=== PATIENT | female | born 1995 | race Caucasian/White ===

== ENCOUNTER → 2021-11-14 09:29 | Outpatient (CLI) | payer OTHER, SELFPAY ==
[2021-11-14 12:19] LABS: Hematocrit 33.4 % (36-46); Hemoglobin 11.1 g/dL (12.0-16.0)
[2021-11-14 12:27] LABS: GTT (PREG) 1 Hour PP 50gm Dose 92 mg/dL (76-139)
== END ==
PROVIDERS: Referring Provider Obstetrics & Gynecology; Visit Provider Obstetrics & Gynecology
DX: Z34.02 Encounter for supervision of normal first pregnancy, second trimester (principal); Z3A.25 25 weeks gestation of pregnancy
CPT/HCPCS: 36415; 82950; 85014; 85018

== ENCOUNTER 2021-11-15 08:17 | Outpatient (CLI) | payer OTHER, SELFPAY ==
--- NOTE | 2021-11-15 09:00 | P.TNLD_ITS ---
Visit Information Visit Information Date of evaluation: 11/15/21 Primary OB Provider: Kim Vann Reason for Evaluation: Yes non-stress test Comments/Additional reasons for admission: @26+0 sent for NST due to deep variable heard in clinic. No symptoms or concerns. Vital Signs Vital Signs: 114/67, HR 76 [facility] Medical History Acne (~2019) Anxiety (~2019) Chicken pox (~1995) Constipation Malignant melanoma (~07/2016) Surgical History Anesthesia H/O breast augmentation (~12/2014) S/P lumpectomy, left breast (~10/2013) Skin cancer (~2015) [place] teeth extracted (~2017) Family History Mother Hypertension Myocardial infarction Heart disease Hyperlipidemia Father Hypertension Grandmother Breast cancer Diabetes mellitus Grandfather Colon cancer Heart disease Hyperlipidemia Hypertension Grandmother Parkinson's disease Grandfather Colon cancer Hypertension Brother ADHD Dyslexia Sister Herpes Social History marital status: number of children: 0 household members: spouse lives independently: Yes caregiver/support person: No pets and animals: Yes (2 dogs, 1 cat: safe/aware. 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 ) substance use type: does not use during the past year weight has: remained stable well-balanced diet: daily or most days caffeine: Yes (Limits to 1 cup coffee or soda daily. ) Type(s) of exercise: walking, bicycling (Peloton) and normal ROM and activity frequency: 3-4 times per week duration: 30-45 minutes/day Evaluation Evaluation Baseline heart rate: 145 Variability: Minimal (3-5) monitor accelerations: Absent (appropriate for gestational age) Monitor Decelerations: Absent Diagnosis, Plan/Disposition Plan/Disposition Plan: No further variables, discharged home with routine precautions. OB Disposition: home
== END 2021-11-15 08:57 | disposition home or self-care (01) ==
LOC: OB 12-12 12:35
PROVIDERS: Referring Provider Obstetrics & Gynecology; Visit Provider Obstetrics & Gynecology
DX: O36.8320 Maternal care for abnormalities of the fetal heart rate or rhythm, second trimester, not applicable or unspecified (principal); Z3A.26 26 weeks gestation of pregnancy
CPT/HCPCS: 59025; G0378; G0379

== ENCOUNTER 2021-12-13 08:31 | Outpatient (CLI) | payer OTHER, SELFPAY ==
--- NOTE | 2021-12-13 11:09 | PM.OBTRLD ---
Visit Information Visit Information Date of evaluation: 12/13/21 Primary OB Provider: Kim Vann Reason for Evaluation: Yes non-stress test Comments/Additional reasons for admission: Patient is a 26yo P0 @30 weeks gestation sent for NST due to grade 2 placenta. Uterine synechea but no other complications, medical history, or covid history. Vital Signs Vital Signs: 119/76, pulse 95 PFSH Medical History Acne (~2019) Anxiety (~2019) Chicken pox (~1995) Constipation Malignant melanoma (~07/2016) Surgical History Anesthesia H/O breast augmentation (~12/2014) S/P lumpectomy, left breast (~10/2013) Skin cancer (~2015) [place] teeth extracted (~2017) Family History Mother Hypertension Myocardial infarction Heart disease Hyperlipidemia Father Hypertension Grandmother Breast cancer Diabetes mellitus Grandfather Colon cancer Heart disease Hyperlipidemia Hypertension Grandmother Parkinson's disease Grandfather Colon cancer Hypertension Brother ADHD Dyslexia Sister Herpes Social History marital status: number of children: 0 household members: spouse lives independently: Yes caregiver/support person: No pets and animals: Yes (2 dogs, 1 cat: safe/aware. 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 ) substance use type: does not use during the past year weight has: remained stable well-balanced diet: daily or most days caffeine: Yes (Limits to 1 cup coffee or soda daily. ) Type(s) of exercise: walking, bicycling (Peloton) and normal ROM and activity frequency: 3-4 times per week duration: 30-45 minutes/day Evaluation Evaluation Baseline heart rate: 135 Variability: Average (6-10) monitor accelerations: Present (15x15) Monitor Decelerations: Absent Category of Tracing: Reactive Status: Category l Diagnosis, Plan/Disposition Plan/Disposition Plan: Home with routine precautions. OB Disposition: home
== END 2021-12-13 09:00 | disposition home or self-care (01) ==
LOC: LABOR 08:42 → OB 12-16 10:46
PROVIDERS: Referring Provider Obstetrics & Gynecology; Visit Provider Obstetrics & Gynecology
DX: O44.23 Partial placenta previa NOS or without hemorrhage, third trimester (principal); Z3A.30 30 weeks gestation of pregnancy
CPT/HCPCS: 59025; G0378; G0379

== ENCOUNTER → 2021-12-21 10:45 | Outpatient (CLI) | payer OTHER, SELFPAY ==
[2021-12-21 11:26] LABS: Add Manual Diff / Slide Review NO; Basophils Absolute Auto 0 /uL (0-100); Basophils Percent Auto 0.1 % (0-2); Eosinophils Absolute Auto 100 /uL (0-450); Eosinophils Percent Auto 0.8 % (2-4); Hematocrit 30.7 % (36-46); Hemoglobin 10.3 g/dL (12.0-16.0); Lymphocytes Absolute Auto 1500 /uL (1100-4500); Lymphocytes Percent Auto 12.4 % (25-40); Mean Corpuscular HGB Conc 33.7 % (30-36); Mean Corpuscular Hemoglobin 26.9 PG (26-34); Mean Corpuscular Volume 79.9 fL (80-100); Monocytes Absolute Auto 1100 /uL (0-900); Monocytes Percent Auto 8.8 % (3-14); Neutrophils Absolute Auto 9500 /uL (1500-7000); Neutrophils Percent Auto 77.9 % (50-75); Platelet Count 381 X10^3/uL (150-400); Red Blood Cell Count 3.84 X10^6/uL (4.0-5.2); White Blood Cell Count 12.2 X10^3/uL (4.5-11.0)
[2021-12-21 11:50] LABS: Alanine Aminotransferase 15 IU/L (<35); Albumin 3.8 g/dL (3.5-5.0); Albumin Globulin Ratio 1.1 (1.0-2.8); Alkaline Phosphatase 136 U/L (38-126); Aspartate Aminotransferase 23 IU/L (14-36); Bilirubin Total 0.2 mg/dL (0.2-1.3); Blood Urea Nitrogen 6 mg/dL (7-17); Calcium 9.2 mg/dL (8.4-10.2); Carbon Dioxide 19 mmol/L (22-32); Chloride 108 mmol/L (98-107); Estimated Glomerular Filt Rate > 60.0 mL/min (>60); Globulin 3.5 g/dL (1.7-4.1); Glucose 87 mg/dL (70-100); HEMOLYSIS < 15 (0-50); Lactate Dehydrogenase 356 U/L (313-618); Potassium 3.6 mmol/L (3.4-5.1); Sodium 136 mmol/L (137-145); Total Protein 7.3 g/dL (6.3-8.2); Uric Acid 3.7 mg/dL (2.5-6.2)
[2021-12-21 12:17] LABS: Creatinine Urine Random 36.6 mg/dL; Protein (Total) Urine Random 14 mg/dL (0-12); Protein Creatinine Ratio Urine 0.38 GRAM/24H
== END ==
PROVIDERS: Referring Provider Obstetrics & Gynecology; Visit Provider Obstetrics & Gynecology
DX: Z34.90 Encounter for supervision of normal pregnancy, unspecified, unspecified trimester (principal)
CPT/HCPCS: 36415; 80053; 82570; 83615; 84156; 84550; 85025

== ENCOUNTER 2021-12-21 10:46 | Outpatient (CLI) | payer OTHER, SELFPAY ==
--- NOTE | 2021-12-21 18:19 | P.TNLD_ITS ---
Visit Information Visit Information Date of evaluation: 12/21/21 Primary OB Provider: Kim Vann Reason for Evaluation: Yes non-stress test Comments/Additional reasons for admission: This patient is a 26yo @31+1 with an abnormally calcified placenta and uterine synechia, presenting for scheduled monitoring. [facility] labs pending. [facility] Medical History Acne (~2019) Anxiety (~2019) Chicken pox (~1995) Constipation Malignant melanoma (~07/2016) Surgical History Anesthesia H/O breast augmentation (~12/2014) S/P lumpectomy, left breast (~10/2013) Skin cancer (~2015) [place] teeth extracted (~2017) Family History Mother Hypertension Myocardial infarction Heart disease Hyperlipidemia Father Hypertension Grandmother Breast cancer Diabetes mellitus Grandfather Colon cancer Heart disease Hyperlipidemia Hypertension Grandmother Parkinson's disease Grandfather Colon cancer Hypertension Brother ADHD Dyslexia Sister Herpes Social History marital status: number of children: 0 household members: spouse lives independently: Yes caregiver/support person: No pets and animals: Yes (2 dogs, 1 cat: safe/aware. 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 ) substance use type: does not use during the past year weight has: remained stable well-balanced diet: daily or most days caffeine: Yes (Limits to 1 cup coffee or soda daily. ) Type(s) of exercise: walking, bicycling (Peloton) and normal ROM and activity frequency: 3-4 times per week duration: 30-45 minutes/day Exam Vital Signs (past 8 hours): 109/55 Evaluation Evaluation Baseline heart rate: 130 Variability: Moderate (11-25) monitor accelerations: Present Monitor Decelerations: Absent Diagnosis, Plan/Disposition Plan/Disposition Plan: Home with routine precautions. OB Disposition: home
== END 2021-12-21 11:49 | disposition home or self-care (01) ==
LOC: LABOR 11:06 → OB 15:43
PROVIDERS: Referring Provider Obstetrics & Gynecology; Visit Provider Obstetrics & Gynecology
DX: O43.893 Other placental disorders, third trimester (principal); O26.893 Other specified pregnancy related conditions, third trimester; N85.6 Intrauterine synechiae; Z3A.31 31 weeks gestation of pregnancy; Z34.90 Encounter for supervision of normal pregnancy, unspecified, unspecified trimester
CPT/HCPCS: 36415; 59025; 80053; 82570; 83615; 84156; 84550; 85025; G0378; G0379

== ENCOUNTER → 2021-12-23 15:39 | Outpatient (ROUT) | payer OTHER, SELFPAY ==
[2021-12-23 16:12] LABS: Collection Time Urine 24 Hours; Protein (Total) Urine Random 10 mg/dL (0-12); Total Protein 24 Hour Urine 125 mg/day (42-225); Total Volume Urine 1250 mL
== END ==
PROVIDERS: Visit Provider Obstetrics & Gynecology
DX: R80.9 Proteinuria, unspecified (principal)
CPT/HCPCS: 84156

== ENCOUNTER 2021-12-27 08:42 | Outpatient (CLI) | payer OTHER, SELFPAY ==
--- NOTE | 2021-12-27 09:46 | PM.OBTRLD ---
Visit Information Visit Information Date of evaluation: 12/27/21 Primary OB Provider: Kim Vann Reason for Evaluation: Yes non-stress test Comments/Additional reasons for admission: This patient is a 26yo P0 @32+0 presenting for a scheduled NST with a calcified placenta and no other complications. Vital Signs Vital Signs: 105/60, HR 75 PFSH Medical History Acne (~2019) Anxiety (~2019) Chicken pox (~1995) Constipation Malignant melanoma (~07/2016) Surgical History Anesthesia H/O breast augmentation (~12/2014) S/P lumpectomy, left breast (~10/2013) Skin cancer (~2015) [place] teeth extracted (~2017) Family History Mother Hypertension Myocardial infarction Heart disease Hyperlipidemia Father Hypertension Grandmother Breast cancer Diabetes mellitus Grandfather Colon cancer Heart disease Hyperlipidemia Hypertension Grandmother Parkinson's disease Grandfather Colon cancer Hypertension Brother ADHD Dyslexia Sister Herpes Social History marital status: number of children: 0 household members: spouse lives independently: Yes caregiver/support person: No pets and animals: Yes (2 dogs, 1 cat: safe/aware. 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 ) substance use type: does not use during the past year weight has: remained stable well-balanced diet: daily or most days caffeine: Yes (Limits to 1 cup coffee or soda daily. ) Type(s) of exercise: walking, bicycling (Peloton) and normal ROM and activity frequency: 3-4 times per week duration: 30-45 minutes/day Evaluation Evaluation Baseline heart rate: 135 Variability: Moderate (11-25) monitor accelerations: Absent Monitor Decelerations: Absent Category of Tracing: Reactive Status: Category l Diagnosis, Plan/Disposition Plan/Disposition Plan: Home, scheduled biweekly testing. OB Disposition: home
[2021-12-27 09:54] VITALS: BP 105/60; PULSE 75; RESP 20; TEMP 36.8
== END 2021-12-27 09:40 | disposition home or self-care (01) ==
LOC: LABOR 09:33 → OB 12-30 12:36
PROVIDERS: Referring Provider Obstetrics & Gynecology; Visit Provider Obstetrics & Gynecology
DX: O43.893 Other placental disorders, third trimester (principal); Z3A.32 32 weeks gestation of pregnancy
CPT/HCPCS: 59025; G0378; G0379

== ENCOUNTER 2021-12-31 17:21 | Outpatient (CLI) | payer OTHER, SELFPAY ==
[2021-12-31 18:17] VITALS: BP 120/73; PULSE 88; RESP 20; TEMP 36.8; O2SAT 96
[2021-12-31 18:20] LABS: Add Manual Diff / Slide Review NO; Basophils Absolute Auto 0 /uL (0-100); Basophils Percent Auto 0.1 % (0-2); Eosinophils Absolute Auto 100 /uL (0-450); Eosinophils Percent Auto 0.7 % (2-4); Hemoglobin 10.3 g/dL (12.0-16.0); Lymphocytes Absolute Auto 1700 /uL (1100-4500); Lymphocytes Percent Auto 15.1 % (25-40); Mean Corpuscular HGB Conc 33.4 % (30-36); Mean Corpuscular Volume 80.9 fL (80-100); Monocytes Absolute Auto 1100 /uL (0-900); Monocytes Percent Auto 9.5 % (3-14); Neutrophils Absolute Auto 8600 /uL (1500-7000); Neutrophils Percent Auto 74.6 % (50-75); Platelet Count 324 X10^3/uL (150-400); Red Blood Cell Count 3.83 X10^6/uL (4.0-5.2); Red Cell Distribution Width 13.7 % (11.6-14.8); White Blood Cell Count 11.5 X10^3/uL (4.5-11.0)
[2021-12-31 19:51] LABS: Aspartate Aminotransferase 21 IU/L (14-36); Estimated Glomerular Filt Rate > 60.0 mL/min (>60)
[2021-12-31 19:54] LABS: BUN Creatinine Ratio 5.1 (6-22); Blood Urea Nitrogen 2 mg/dL (7-17)
--- NOTE | 2021-12-31 20:02 | PM.OBTRLD ---
Visit Information Visit Information Date of evaluation: 12/31/21 Primary OB Provider: Kim Vann Reason for Evaluation: Yes non-stress test Comments/Additional reasons for admission: This patient is a 26yo P0 @32 weeks gestation being followed for a heavily calcified placenta and uterine synechea, presenting for transient SOB and a BP 130s/80s at work. Rare floaters unchanged from prior visits, no other visual changes, ARRIETA. No ctx, good movement, no LOF, no VB. Vital Signs Vital Signs: Vital Signs - 8 hr 12/31/21 18:17 Temperature 98.2 F Pulse Rate 88 Respiratory Rate 20 Blood Pressure 120/73 Pulse Oximetry 96 PFSH Medical History Acne (~2019) Anxiety (~2019) Chicken pox (~1995) Constipation Malignant melanoma (~07/2016) Surgical History Anesthesia H/O breast augmentation (~12/2014) S/P lumpectomy, left breast (~10/2013) Skin cancer (~2015) [place] teeth extracted (~2017) Family History Mother Hypertension Myocardial infarction Heart disease Hyperlipidemia Father Hypertension Grandmother Breast cancer Diabetes mellitus Grandfather Colon cancer Heart disease Hyperlipidemia Hypertension Grandmother Parkinson's disease Grandfather Colon cancer Hypertension Brother ADHD Dyslexia Sister Herpes Social History marital status: number of children: 0 household members: spouse lives independently: Yes caregiver/support person: No pets and animals: Yes (2 dogs, 1 cat: safe/aware. 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 ) substance use type: does not use during the past year weight has: remained stable well-balanced diet: daily or most days caffeine: Yes (Limits to 1 cup coffee or soda daily. ) Type(s) of exercise: walking, bicycling (Peloton) and normal ROM and activity frequency: 3-4 times per week duration: 30-45 minutes/day Exam Vital Signs (past 8 hours): - 12/31/21 18:17 Temperature 98.2 F Pulse Rate 88 Respiratory Rate 20 Blood Pressure 120/73 Pulse Oximetry 96 Objective Labs Result Diagrams: 12/31/21 18:07 12/31/21 18:07 Labs: Laboratory Results - last 24 hr 12/31/21 12/31/21 18:07 18:07 WBC 11.5 H RBC 3.83 L Hgb 10.3 L Hct 31.0 L MCV 80.9 MCH 27.0 MCHC 33.4 RDW 13.7 Plt Count 324 Neut % (Auto) 74.6 Lymph % (Auto) 15.1 L [place] % (Auto) 9.5 Eos % (Auto) 0.7 L Baso % (Auto) 0.1 Neut # (Auto) 8600 H Lymph # (Auto) 1700 [place] # (Auto) 1100 H Eos # (Auto) 100 Baso # (Auto) 0 BUN 2 L Creatinine 0.39 L Estimated GFR > 60.0 BUN/Creatinine Ratio 5.1 L Uric Acid 4.0 AST 21 Evaluation Evaluation Variability: Moderate (11-25) monitor accelerations: Present Monitor Decelerations: Absent Category of Tracing: Reactive Status: Category l Comments: RRR, CTAB, legs with trace edema, even bilaterally with no calf tenderness. PIH labs wnl. FHR wnl. Diagnosis, Plan/Disposition Plan/Disposition Plan: Home with scheduled follow up. OB Disposition: home
== END 2021-12-31 18:15 | disposition home or self-care (01) ==
LOC: LABOR 17:28 → OB 01-04 09:32
PROVIDERS: Referring Provider Obstetrics & Gynecology; Visit Provider Obstetrics & Gynecology
DX: O26.893 Other specified pregnancy related conditions, third trimester (principal); R06.02 Shortness of breath; R03.0 Elevated blood-pressure reading, without diagnosis of hypertension; H43.399 Other vitreous opacities, unspecified eye; Z3A.32 32 weeks gestation of pregnancy
CPT/HCPCS: 36415; 59025; 84450; 84550; 85025; G0378; G0379

== ENCOUNTER 2022-01-03 12:10 | Outpatient (CLI) | payer OTHER, SELFPAY ==
[2022-01-03 12:52] VITALS: BP 108/60; PULSE 75; RESP 20; TEMP 36.2
--- NOTE | 2022-01-03 14:13 | P.TNLD_ITS ---
Visit Information Visit Information Date of evaluation: 01/03/22 Primary OB Provider: Kim Vann Reason for Evaluation: Yes non-stress test Comments/Additional reasons for admission: @33+0 in testing for a prematurely calcified placenta. Vital Signs Vital Signs: Vital Signs - 8 hr 01/03/22 12:52 Temperature 97.2 F L Pulse Rate 75 Respiratory Rate 20 Blood Pressure 108/60 [facility] Medical History Acne (~2019) Anxiety (~2019) Chicken pox (~1995) Constipation Malignant melanoma (~07/2016) Surgical History Anesthesia H/O breast augmentation (~12/2014) S/P lumpectomy, left breast (~10/2013) Skin cancer (~2015) [place] teeth extracted (~2017) Family History Mother Hypertension Myocardial infarction Heart disease Hyperlipidemia Father Hypertension Grandmother Breast cancer Diabetes mellitus Grandfather Colon cancer Heart disease Hyperlipidemia Hypertension Grandmother Parkinson's disease Grandfather Colon cancer Hypertension Brother ADHD Dyslexia Sister Herpes Social History marital status: number of children: 0 household members: spouse lives independently: Yes caregiver/support person: No pets and animals: Yes (2 dogs, 1 cat: safe/aware. 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 ) substance use type: does not use during the past year weight has: remained stable well-balanced diet: daily or most days caffeine: Yes (Limits to 1 cup coffee or soda daily. ) Type(s) of exercise: walking, bicycling (Peloton) and normal ROM and activity frequency: 3-4 times per week duration: 30-45 minutes/day Exam Vital Signs (past 8 hours): - 01/03/22 12:52 Temperature 97.2 F L Pulse Rate 75 Respiratory Rate 20 Blood Pressure 108/60 Evaluation Evaluation Baseline heart rate: 140 Variability: Average (6-10) monitor accelerations: Present Monitor Decelerations: Absent Diagnosis, Plan/Disposition Plan/Disposition Plan: Home with routine precautions. OB Disposition: home
== END 2022-01-03 13:00 | disposition home or self-care (01) ==
LOC: LABOR 12:40 → OB 01-04 09:34
PROVIDERS: Referring Provider Obstetrics & Gynecology; Visit Provider Obstetrics & Gynecology
DX: O43.893 Other placental disorders, third trimester (principal); Z3A.33 33 weeks gestation of pregnancy
CPT/HCPCS: 59025; G0378; G0379

== ENCOUNTER 2022-01-07 14:51 | Outpatient (CLI) | payer OTHER, SELFPAY ==
--- NOTE | 2022-01-07 15:46 | P.TNLD_ITS ---
Visit Information Visit Information Date of evaluation: 01/07/22 Primary OB Provider: Kim Vann Reason for Evaluation: Yes non-stress test Comments/Additional reasons for admission: This patient is a 26yo @33+4 presenting for a scheduled NST for calcified placenta. Vital Signs Vital Signs: 107/66, HR 96 PFSH Medical History Acne (~2019) Anxiety (~2019) Chicken pox (~1995) Constipation Malignant melanoma (~07/2016) Surgical History Anesthesia H/O breast augmentation (~12/2014) S/P lumpectomy, left breast (~10/2013) Skin cancer (~2015) [place] teeth extracted (~2017) Family History Mother Hypertension Myocardial infarction Heart disease Hyperlipidemia Father Hypertension Grandmother Breast cancer Diabetes mellitus Grandfather Colon cancer Heart disease Hyperlipidemia Hypertension Grandmother Parkinson's disease Grandfather Colon cancer Hypertension Brother ADHD Dyslexia Sister Herpes Social History marital status: number of children: 0 household members: spouse lives independently: Yes caregiver/support person: No pets and animals: Yes (2 dogs, 1 cat: safe/aware. 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 ) substance use type: does not use during the past year weight has: remained stable well-balanced diet: daily or most days caffeine: Yes (Limits to 1 cup coffee or soda daily. ) Type(s) of exercise: walking, bicycling (Peloton) and normal ROM and activity frequency: 3-4 times per week duration: 30-45 minutes/day Evaluation Evaluation Baseline heart rate: 130 Variability: Moderate (11-25) monitor accelerations: Present Monitor Decelerations: Absent Diagnosis, Plan/Disposition Plan/Disposition Plan: Home with routine precautions. OB Disposition: home
== END 2022-01-07 15:51 | disposition home or self-care (01) ==
LOC: LABOR 15:06 → OB 01-08 08:28
PROVIDERS: Referring Provider Obstetrics & Gynecology; Visit Provider Obstetrics & Gynecology
DX: O43.893 Other placental disorders, third trimester (principal); Z3A.33 33 weeks gestation of pregnancy
CPT/HCPCS: 59025; G0378; G0379

== ENCOUNTER 2022-01-11 14:15 | Outpatient (CLI) | payer OTHER, SELFPAY ==
--- NOTE | 2022-01-11 15:39 | P.TNLD_ITS ---
Visit Information Visit Information Date of evaluation: 01/11/22 Primary OB Provider: Kim Vann Reason for Evaluation: Yes non-stress test Comments/Additional reasons for admission: This patient is a 26yo P0 in testing for a grade 3 placenta, presenting at 34 weeks for a scheduled NST. Vital Signs Vital Signs: 114/75, HR 93 PFSH Medical History Acne (~2019) Anxiety (~2019) Chicken pox (~1995) Constipation Malignant melanoma (~07/2016) Surgical History Anesthesia H/O breast augmentation (~12/2014) S/P lumpectomy, left breast (~10/2013) Skin cancer (~2015) [place] teeth extracted (~2017) Family History Mother Hypertension Myocardial infarction Heart disease Hyperlipidemia Father Hypertension Grandmother Breast cancer Diabetes mellitus Grandfather Colon cancer Heart disease Hyperlipidemia Hypertension Grandmother Parkinson's disease Grandfather Colon cancer Hypertension Brother ADHD Dyslexia Sister Herpes Social History marital status: number of children: 0 household members: spouse lives independently: Yes caregiver/support person: No pets and animals: Yes (2 dogs, 1 cat: safe/aware. 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 ) substance use type: does not use during the past year weight has: remained stable well-balanced diet: daily or most days caffeine: Yes (Limits to 1 cup coffee or soda daily. ) Type(s) of exercise: walking, bicycling (Peloton) and normal ROM and activity frequency: 3-4 times per week duration: 30-45 minutes/day Evaluation Evaluation Baseline heart rate: 135 Variability: Moderate (11-25) monitor accelerations: Present Monitor Decelerations: Absent Category of Tracing: Reactive Status: Category l Diagnosis, Plan/Disposition Plan/Disposition Plan: home with scheduled precautions OB Disposition: home
== END 2022-01-11 15:40 | disposition home or self-care (01) ==
LOC: LABOR 14:30 → OB 01-15 15:13
PROVIDERS: Referring Provider Obstetrics & Gynecology; Visit Provider Obstetrics & Gynecology
DX: O43.893 Other placental disorders, third trimester (principal); Z3A.34 34 weeks gestation of pregnancy
CPT/HCPCS: 59025; G0378; G0379

== ENCOUNTER 2022-01-15 16:13 | Outpatient (CLI) | payer OTHER, SELFPAY ==
--- NOTE | 2022-01-15 17:21 | PM.OBTRLD ---
Visit Information Visit Information Date of evaluation: 01/15/22 Primary OB Provider: Kim Vann Reason for Evaluation: Yes non-stress test Comments/Additional reasons for admission: This patient is a 26yo P0 @34 weeks gestation, being monitored for a heavily calcified placenta and presenting for a scheduled NST. Vital Signs Vital Signs: 123/82, HR 98 PFSH Medical History Acne (~2019) Anxiety (~2019) Chicken pox (~1995) Constipation Malignant melanoma (~07/2016) Surgical History Anesthesia H/O breast augmentation (~12/2014) S/P lumpectomy, left breast (~10/2013) Skin cancer (~2015) [place] teeth extracted (~2017) Family History Mother Hypertension Myocardial infarction Heart disease Hyperlipidemia Father Hypertension Grandmother Breast cancer Diabetes mellitus Grandfather Colon cancer Heart disease Hyperlipidemia Hypertension Grandmother Parkinson's disease Grandfather Colon cancer Hypertension Brother ADHD Dyslexia Sister Herpes Social History marital status: number of children: 0 household members: spouse lives independently: Yes caregiver/support person: No pets and animals: Yes (2 dogs, 1 cat: safe/aware. 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 ) substance use type: does not use during the past year weight has: remained stable well-balanced diet: daily or most days caffeine: Yes (Limits to 1 cup coffee or soda daily. ) Type(s) of exercise: walking, bicycling (Peloton) and normal ROM and activity frequency: 3-4 times per week duration: 30-45 minutes/day Evaluation Evaluation Baseline heart rate: 130 Variability: Moderate (11-25) monitor accelerations: Present Monitor Decelerations: Absent Category of Tracing: Reactive Status: Category l Diagnosis, Plan/Disposition Plan/Disposition Plan: Home with planned follow up. OB Disposition: home
== END 2022-01-15 17:22 | disposition home or self-care (01) ==
LOC: OB 01-22 07:40
PROVIDERS: PCP Internal Medicine; Referring Provider Obstetrics & Gynecology; Visit Provider Obstetrics & Gynecology
DX: O43.893 Other placental disorders, third trimester (principal); Z3A.34 34 weeks gestation of pregnancy
CPT/HCPCS: 59025; G0378; G0379

== ENCOUNTER 2022-01-17 10:57 | Outpatient (CLI) | payer OTHER, SELFPAY ==
--- NOTE | 2022-01-17 11:40 | P.TNLD_ITS ---
Visit Information Visit Information Date of evaluation: 01/17/22 Primary OB Provider: Kim Vann Reason for Evaluation: Yes non-stress test Comments/Additional reasons for admission: This patient is a 26yo P0 @35 weeks, being monitored for a grade 3 placenta and uterine synechiae. The patient reports no obstetrical symptoms and presents to L&D from her clinic visit for a scheduled NST. Vital Signs Vital Signs: 110s/70s, HR 80s PFSH Medical History Acne (~2019) Anxiety (~2019) Chicken pox (~1995) Constipation Malignant melanoma (~07/2016) Surgical History Anesthesia H/O breast augmentation (~12/2014) S/P lumpectomy, left breast (~10/2013) Skin cancer (~2015) [place] teeth extracted (~2017) Family History Mother Hypertension Myocardial infarction Heart disease Hyperlipidemia Father Hypertension Grandmother Breast cancer Diabetes mellitus Grandfather Colon cancer Heart disease Hyperlipidemia Hypertension Grandmother Parkinson's disease Grandfather Colon cancer Hypertension Brother ADHD Dyslexia Sister Herpes Social History marital status: number of children: 0 household members: spouse lives independently: Yes caregiver/support person: No pets and animals: Yes (2 dogs, 1 cat: safe/aware. 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 ) substance use type: does not use during the past year weight has: remained stable well-balanced diet: daily or most days caffeine: Yes (Limits to 1 cup coffee or soda daily. ) Type(s) of exercise: walking, bicycling (Peloton) and normal ROM and activity frequency: 3-4 times per week duration: 30-45 minutes/day Evaluation Evaluation Baseline heart rate: 130 Variability: Average (6-10) monitor accelerations: Present Monitor Decelerations: Absent Category of Tracing: Reactive Status: Category l Diagnosis, Plan/Disposition Plan/Disposition Plan: Home with scheduled follow up. OB Disposition: home
== END 2022-01-17 11:30 | disposition home or self-care (01) ==
LOC: LABOR 11:09 → OB 01-22 07:43
PROVIDERS: PCP Internal Medicine; Referring Provider Obstetrics & Gynecology; Visit Provider Obstetrics & Gynecology
DX: O43.893 Other placental disorders, third trimester (principal); N85.6 Intrauterine synechiae; O26.893 Other specified pregnancy related conditions, third trimester; Z3A.35 35 weeks gestation of pregnancy
CPT/HCPCS: 59025; G0378; G0379

== ENCOUNTER 2022-01-21 16:24 | Outpatient (CLI) | payer OTHER, SELFPAY ==
--- NOTE | 2022-01-21 17:27 | PM.OBTRLD ---
Visit Information Visit Information Date of evaluation: 01/21/22 Primary OB Provider: Kim Vann Reason for Evaluation: Yes non-stress test Comments/Additional reasons for admission: Patient is a 26yo P0 @35 weeks gestation with a grade 3 placenta, presenting for scheduled NST with no PIH or obstetric complaints. [facility] Medical History Acne (~2019) Anxiety (~2019) Chicken pox (~1995) Constipation Malignant melanoma (~07/2016) Surgical History Anesthesia H/O breast augmentation (~12/2014) S/P lumpectomy, left breast (~10/2013) Skin cancer (~2015) [place] teeth extracted (~2017) Family History Mother Hypertension Myocardial infarction Heart disease Hyperlipidemia Father Hypertension Grandmother Breast cancer Diabetes mellitus Grandfather Colon cancer Heart disease Hyperlipidemia Hypertension Grandmother Parkinson's disease Grandfather Colon cancer Hypertension Brother ADHD Dyslexia Sister Herpes Social History marital status: number of children: 0 household members: spouse lives independently: Yes caregiver/support person: No pets and animals: Yes (2 dogs, 1 cat: safe/aware. 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 ) substance use type: does not use during the past year weight has: remained stable well-balanced diet: daily or most days caffeine: Yes (Limits to 1 cup coffee or soda daily. ) Type(s) of exercise: walking, bicycling (Peloton) and normal ROM and activity frequency: 3-4 times per week duration: 30-45 minutes/day Exam Vital Signs (past 8 hours): 116/73, HR 85 Evaluation Evaluation Baseline heart rate: 130 Variability: Average (6-10) monitor accelerations: Present Monitor Decelerations: Absent Category of Tracing: Reactive Status: Category l Diagnosis, Plan/Disposition Plan/Disposition Plan: Home with scheduled follow up. OB Disposition: home
== END 2022-01-21 17:30 | disposition home or self-care (01) ==
LOC: OB 01-24 07:24
PROVIDERS: PCP Internal Medicine; Referring Provider Obstetrics & Gynecology; Visit Provider Obstetrics & Gynecology
DX: O43.893 Other placental disorders, third trimester (principal); Z3A.35 35 weeks gestation of pregnancy
CPT/HCPCS: 59025; G0378; G0379

== ENCOUNTER 2022-01-25 14:41 | Outpatient (CLI) | payer OTHER, SELFPAY ==
--- NOTE | 2022-01-25 15:12 | P.TNLD_ITS ---
Visit Information Visit Information Date of evaluation: 01/25/22 Primary OB Provider: Kim Vann Reason for Evaluation: Yes non-stress test Comments/Additional reasons for admission: P0 @36 weeks with grade 3 placenta in routine testing. Vital Signs Vital Signs: 120/77 [facility] Medical History Acne (~2019) Anxiety (~2019) Chicken pox (~1995) Constipation Malignant melanoma (~07/2016) Surgical History Anesthesia H/O breast augmentation (~12/2014) S/P lumpectomy, left breast (~10/2013) Skin cancer (~2015) [place] teeth extracted (~2017) Family History Mother Hypertension Myocardial infarction Heart disease Hyperlipidemia Father Hypertension Grandmother Breast cancer Diabetes mellitus Grandfather Colon cancer Heart disease Hyperlipidemia Hypertension Grandmother Parkinson's disease Grandfather Colon cancer Hypertension Brother ADHD Dyslexia Sister Herpes Social History marital status: number of children: 0 household members: spouse lives independently: Yes caregiver/support person: No pets and animals: Yes (2 dogs, 1 cat: safe/aware. 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 ) substance use type: does not use during the past year weight has: remained stable well-balanced diet: daily or most days caffeine: Yes (Limits to 1 cup coffee or soda daily. ) Type(s) of exercise: walking, bicycling (Peloton) and normal ROM and activity frequency: 3-4 times per week duration: 30-45 minutes/day Evaluation Evaluation Baseline heart rate: 135 Variability: Moderate (11-25) monitor accelerations: Present Monitor Decelerations: Absent Category of Tracing: Reactive Status: Category l Diagnosis, Plan/Disposition Plan/Disposition Plan: To office for BPP and visit. OB Disposition: home
== END 2022-01-25 15:15 | disposition home or self-care (01) ==
LOC: LABOR 15:12 → OB 01-29 07:28
PROVIDERS: PCP Internal Medicine; Referring Provider Obstetrics & Gynecology; Visit Provider Obstetrics & Gynecology
DX: O43.893 Other placental disorders, third trimester (principal); Z3A.36 36 weeks gestation of pregnancy
CPT/HCPCS: 59025; 87653; G0378; G0379

== ENCOUNTER 2022-01-29 11:10 | Outpatient (CLI) | payer OTHER, SELFPAY ==
--- NOTE | 2022-01-29 11:49 | PM.OBTRLD ---
Visit Information Visit Information Date of evaluation: 01/29/22 Primary OB Provider: Kim Vann Reason for Evaluation: Yes non-stress test Comments/Additional reasons for admission: Patient in scheduled testing for grade 3 placenta, s/p 8/8 BPP. Vital Signs Vital Signs: 120/75, HR 76 PFSH Medical History Acne (~2019) Anxiety (~2019) Chicken pox (~1995) Constipation Malignant melanoma (~07/2016) Surgical History Anesthesia H/O breast augmentation (~12/2014) S/P lumpectomy, left breast (~10/2013) Skin cancer (~2015) [place] teeth extracted (~2017) Family History Mother Hypertension Myocardial infarction Heart disease Hyperlipidemia Father Hypertension Grandmother Breast cancer Diabetes mellitus Grandfather Colon cancer Heart disease Hyperlipidemia Hypertension Grandmother Parkinson's disease Grandfather Colon cancer Hypertension Brother ADHD Dyslexia Sister Herpes Social History marital status: number of children: 0 household members: spouse lives independently: Yes caregiver/support person: No pets and animals: Yes (2 dogs, 1 cat: safe/aware. 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 ) substance use type: does not use during the past year weight has: remained stable well-balanced diet: daily or most days caffeine: Yes (Limits to 1 cup coffee or soda daily. ) Type(s) of exercise: walking, bicycling (Peloton) and normal ROM and activity frequency: 3-4 times per week duration: 30-45 minutes/day Evaluation Evaluation Baseline heart rate: 130 Variability: Moderate (11-25) monitor accelerations: Present Monitor Decelerations: Absent Category of Tracing: Reactive Status: Category l Diagnosis, Plan/Disposition Plan/Disposition Plan: Home with planned induction and scheduled follow up. OB Disposition: home
== END 2022-01-29 11:55 | disposition home or self-care (01) ==
LOC: LABOR 11:26 → OB 02-12 07:54
PROVIDERS: PCP Internal Medicine; Referring Provider Obstetrics & Gynecology; Visit Provider Obstetrics & Gynecology
DX: O43.893 Other placental disorders, third trimester (principal); Z3A.36 36 weeks gestation of pregnancy
CPT/HCPCS: 59025; G0378; G0379

== ENCOUNTER 2022-01-31 08:42 | Outpatient (CLI) | payer OTHER, SELFPAY ==
--- NOTE | 2022-01-31 09:23 | P.TNLD_ITS ---
Visit Information Visit Information Date of evaluation: 01/31/22 Primary OB Provider: Kim Vann On-call OB Provider: Jessika Verdugo Reason for Evaluation: Yes non-stress test non-stress test reason: other (Abnormal placenta) [facility] Medical History Acne (~2019) Anxiety (~2019) Chicken pox (~1995) Constipation Malignant melanoma (~07/2016) Surgical History Anesthesia H/O breast augmentation (~12/2014) S/P lumpectomy, left breast (~10/2013) Skin cancer (~2015) [place] teeth extracted (~2017) Family History Mother Hypertension Myocardial infarction Heart disease Hyperlipidemia Father Hypertension Grandmother Breast cancer Diabetes mellitus Grandfather Colon cancer Heart disease Hyperlipidemia Hypertension Grandmother Parkinson's disease Grandfather Colon cancer Hypertension Brother ADHD Dyslexia Sister Herpes Social History marital status: number of children: 0 household members: spouse lives independently: Yes caregiver/support person: No pets and animals: Yes (2 dogs, 1 cat: safe/aware. 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 ) substance use type: does not use during the past year weight has: remained stable well-balanced diet: daily or most days caffeine: Yes (Limits to 1 cup coffee or soda daily. ) Type(s) of exercise: walking, bicycling (Peloton) and normal ROM and activity frequency: 3-4 times per week duration: 30-45 minutes/day Evaluation Evaluation Baseline heart rate: 125 Variability: Moderate (11-25) monitor accelerations: Present Monitor Decelerations: Absent Status: Category l Diagnosis, Plan/Disposition Final Diagnosis (1) Abnormal placenta, antepartum: Status: Acute (2) 37 weeks gestation of : Status: Acute Plan/Disposition Plan: Weekly nonstress tests. Follow-up routine OB appointment weekly OB Disposition: home
== END 2022-01-31 09:30 | disposition home or self-care (01) ==
LOC: LABOR 09:57 → OB 02-05 06:34
PROVIDERS: PCP Internal Medicine; Referring Provider Obstetrics & Gynecology; Visit Provider Obstetrics & Gynecology
DX: O43.893 Other placental disorders, third trimester (principal); Z3A.37 37 weeks gestation of pregnancy
CPT/HCPCS: 59025; G0378; G0379

== ENCOUNTER 2022-02-03 18:13 | Inpatient (IN) | payer OTHER, SELFPAY ==
[2022-02-03 19:21] LABS: Add Manual Diff / Slide Review NO; Basophils Absolute Auto 100 /uL (0-100); Basophils Percent Auto 0.5 % (0-2); Eosinophils Absolute Auto 100 /uL (0-450); Eosinophils Percent Auto 0.5 % (2-4); Hematocrit 36.8 % (36-46); Hemoglobin 12.2 g/dL (12.0-16.0); Lymphocytes Absolute Auto 1600 /uL (1100-4500); Lymphocytes Percent Auto 12.6 % (25-40); Mean Corpuscular HGB Conc 33.1 % (30-36); Mean Corpuscular Hemoglobin 26.6 PG (26-34); Mean Corpuscular Volume 80.3 fL (80-100); Monocytes Absolute Auto 1000 /uL (0-900); Neutrophils Absolute Auto 9800 /uL (1500-7000); Neutrophils Percent Auto 78.4 % (50-75); Platelet Count 339 X10^3/uL (150-400); Red Blood Cell Count 4.58 X10^6/uL (4.0-5.2); Red Cell Distribution Width 15.6 % (11.6-14.8); White Blood Cell Count 12.6 X10^3/uL (4.5-11.0)
[2022-02-03 19:24] LABS: COVID19 -Nasal RAPID Negative (Negative)
[2022-02-03 19:29] VITALS: BP 127/78
[2022-02-03] MEDS: DINOPROSTONE VAG (CERVIDIL) 10 MG VAG (20:00)
[2022-02-04] MEDS: LACTATED RINGERS 1,000 ML 100 ML IV ×2 (03:30→09:40)
[2022-02-04] MEDS: fentaNYL 100 MCG/2 ML INJ 50 MCG IV (03:47)
[2022-02-04] MEDS: ONDANSETRON 4 MG/2 ML INJ IV (06:30)
[2022-02-04] MEDS: fentaNYL 100 MCG/2 ML INJ (07:18)
[2022-02-04] MEDS: CEFAZOLIN 2 GM/20 ML SYRINGE IV (08:05)
--- NOTE | 2022-02-04 08:30 | SUR.OPER ---
Supine on Padded OR bed, head on pillow, safety belt at thigh, arms secured on padded arm boards at <90 degrees abduction. Bump under right buttock. Legs uncrossed, gel pad to heels, tape over blanket to lower legs.
[2022-02-04 08:32] LABS: Base Excess Cord Arterial Bld -17 (-9.0-2.2); CO2 Cord Arterial Blood 109 (40-71); HCO3 Cord Arterial Blood 17.5 (17-27); Oxygen Sat Cord Arterial Blood 9 (5-59); PO2 Cord Arterial Blood 18 (6-30); pH Cord Arterial Blood 6.81 (7.14-7.38)
--- NOTE | 2022-02-04 08:42 | PM.OBPNLAB ---
Date/Time Date Patient Seen: 02/04/22 Time Patient Seen: 07:35 Pain Control Pain control: epidural Pelvic Exam Amniotic membrane status: Ruptured Contractions Contraction pattern: Irregular Contraction phase: Resting Contraction intensity: Moderate Status status: Category lll Heart Rate Baseline: 70 Monitor Accelerations: Absent Monitor Decelerations: Prolonged Monitor Variability: Minimal Assessment and Plan Plan: Comments: Called stat to evaluate patient due to persistent bradycardia following KAMRAN placement. Sterile vaginal examination shows the infant to be footling breech with no palpable cord. Due to persistent bradycardia in the face of previously undetected malpresentation, decision was made for emergent section. Patient counseled verbally but due to the fact that she was in knee-chest position and intrauterine resuscitation ongoing, written consent was not possible prior to transfer to the main OR and emergent primary section for intolerance of labor and malpresentation.
[2022-02-04 08:45] VITALS: BP 104/58; PULSE 97; RESP 16; TEMP 36.6; O2SAT 98
[2022-02-04 08:50] VITALS: BP 102/68; PULSE 98; RESP 15; O2SAT 98
[2022-02-04 08:55] VITALS: BP 101/65; PULSE 96; RESP 14; O2SAT 99
--- NOTE | 2022-02-04 08:58 | P.OP_ITS ---
Operative Date/Time/Diagnoses Date of procedure: 02/04/22 Time of procedure: 07:40 Pre-op diagnosis: prolonged bradycardia Post-op diagnosis: same Procedure & Clinicians Procedure: emergent primary section Same procedure as scheduled: No Indications: prolonged bradycardia Surgeon: Jv Valerio Casting Room Helper: Kim Vann Reason for Casting Room Helper: Emergent delivery of , retraction and suturing Anesthesia Type: General Operative Notes Findings: Normal tubes and ovaries. Septate uterus with a 3cm uterine septum palpable. Female infant in breech presentation, apgars 2/4/6. Heavily calcified placenta with areas of adherent clot suggestive of approximately 1/3 abruption. Closure Type: primary Specimen(s): cord blood and cord pH Intraoperative meds administered: Pitocin Estimated Blood Loss (mL): 500 Procedure in detail: EBL: 500ccs Fluids:800ccs UOP: 100ccs Procedures: The patient was taken to the operating room emergently due to prolonged bradycardia, having been found to be in footling breech presentation. She was prepped and draped emergently with betadine. A Pfannenstiel skin incision was made with a scalpel and carried through to the underlying layer of fascia. The fascia was incised in the midline and the incision extended bluntly. The superior aspect of this incision was grasped with Ciro clamps, elevated, and the underlying rectus muscles dissected off bluntly. Attention was then turned to the inferior aspect of this incision which, in a similar fashion, was grasped, tented up with the Ciro clamps, and the rectus muscles dissected off bluntly. The rectus muscles were then in the midline, and the peritoneum identified, and entered bluntly. The peritoneal incision was extended superiorly and inferiorly with good visual ization of the bladder. The bladder blade was inserted and the vesicouterine peritoneum identified, grasped with pickups, and entered sharply with the Metzenbaum scissors. This incision was extended laterally, and the bladder flap created digitally. The bladder blade was then reinserted and the lower uterine segment incised in transverse fashion with the scalpel. The uterine incision was bluntly extended laterally. The bladder blade was removed, and the infant delivered from the breech presentation. The cord was cut and clamped with a section reserved for cord pH, and the infant handed to the pediatrics team. Prior to this point, the surgery was performed by Dr. Valerio and Dr. Keller, who were present at the time of the bradycardia. Subsequent surgery was performed by myself and Dr. Valerio: The placenta was then removed manually, and the uterus was exteriorized and cleared of all clots and debris. The uterine incision was repaired with 1-0 chromic in a running, locked fashion and a 2nd layer of the same suture was used to obtain excellent hemostasis. The uterus was returned to the abdomen, and the gutters were cleared of all clots and debris. The bladder was noted to have a briskly bleeding vessel at the dome, which was carefully made hemostatic with 3- 0 chromic in a figure of 8. The bladder flap was closed with 2-0 Vicryl in a running fashion, the peritoneum was closed with 3-0 Vicryl, and the fascia reapproximated with 0 Vicryl in a running fashion. The subcutaneous layer was placed with 3 0 Vicryl in an interrupted fashion and the skin was closed with 4- 0 biosyn in a running fashion. The patient tolerated the procedure well. Sponge lap and needle counts were correct x2, the instruments having been previously counted as the room was set up for the morning's scheduled CS. 2 g of Ancef were given at commencement of the case when feasible. The patient was taken to the recovery room in stable condition. Complications: other (placental abruption) [place] Baby 1: Infant Gender: Female Presentation: breech Placental Delivery Description: Manual Removal Cord Vessel Description: 3 Vessels score (1 min): 2 score (5 min): 4 score (10 min): 6 weight: 6 lb 6 oz Post-operative Condition: stable Disposition: PACU Aftercare: routine postop
--- NOTE | 2022-02-04 08:58 | PM.OBHP.IH.1 ---
OB HPI Date/Time Date of admission: 02/03/22 Date Patient Seen: 02/04/22 Time Patient Seen: 07:45 History of Present Condition Chief complaint: nst JAY JAY Calculator Estimated Delivery Date Method Current WG Current Estimate 02/21/22 LMP (Certain) 37w 6d Other Estimates 02/19/22 Ultrasound #1 38w 1d Estimated Gestational Age (weeks): 37 : 1 Para: 0 Narrative: This patient is a 26yo @37+4 admitted for induction of labor for a grade 3 placenta, with the cause of placental calcification unknown. The patient was admitted for cervical ripening, which she underwent overnight after admission on 02/03. The patient entered active labor overnight, and on review developed a cat 2 EFM in the lithopone mill worker hours. She underwent SROM for bloody fluid per nursing staff. The heart rate tracing developed late decelerations and prolonged decelerations. At that point, physicians were notified by nursing staff of the characteristics of the heart rate tracing, and she was then immediately taken for emergent section. She was also found to be footling breech at this time. Her section was surgically uncomplicated as detailed in the operative report. Her course was otherwise complicated by suspicion of a uterine synechia. She has no other contributory medical, surgical, polisher brass, or family history. care: good care Dating criteria OB: LMP confirmed by 1st trimester US Ultrasounds: abnormal US findings (uterine synechia. Premature placental aging.) Obstetrical complications: other Medical complications OB: none Indications Indication for induction OB: other (heavily calcified placenta) Preadmission Labs Last OB Lab Results: Blood Type O Positive 02/03/22 18:50 02/03/22 Antibody Screen Negative 02/03/22 18:50 02/03/22 Hematocrit 27.4 % (36-46) L 02/04/22 19:22 02/04/22 Hemoglobin 9.2 g/dL (12.0-16.0) L 02/04/22 19:22 02/04/22 Glucose 1 Hour 92 mg/dL (76-139) 11/14/21 10:58 11/14/21 Group B Streptococcus (PCR) Pos for grp b strep H 01/25/22 16:15 01/25/22 -: Chlamydia screen: negative, Gonorrhea screen: negative and Urine: negative -: PAP smear: Normal Genetic Screens: Cell-free DNA: Normal and Alpha-fetoprotein: Normal External Labs -: Urine: negative Evaluation Evaluation Comments: See HPI [facility] Medical History Acne (~2019) Anxiety (~2019) Chicken pox (~1995) Constipation Malignant melanoma (~07/2016) Surgical History Anesthesia H/O breast augmentation (~12/2014) S/P lumpectomy, left breast (~10/2013) Skin cancer (~2015) [place] teeth extracted (~2017) Family History Mother Hypertension Myocardial infarction Heart disease Hyperlipidemia Father Hypertension Grandmother Breast cancer Diabetes mellitus Grandfather Colon cancer Heart disease Hyperlipidemia Hypertension Grandmother Parkinson's disease Grandfather Colon cancer Hypertension Brother ADHD Dyslexia Sister Herpes Social History marital status: number of children: 0 household members: spouse lives independently: Yes caregiver/support person: No pets and animals: Yes (2 dogs, 1 cat: safe/aware. 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 ) substance use type: does not use during the past year weight has: remained stable well-balanced diet: daily or most days caffeine: Yes (Limits to 1 cup coffee or soda daily. ) Type(s) of exercise: walking, bicycling (Peloton) and normal ROM and activity frequency: 3-4 times per week duration: 30-45 minutes/day Meds Home Medications and Allergies Home Medications Medication Instructions Recorded Confirmed Type prenat.vits,adrianna,nil-oxrj-bhpqd 1 tab PO DAILY 09/14/21 02/03/22 History ferrous sulfate 325 mg (65 mg 325 mg PO DAILY #30 tab 11/29/21 02/03/22 Rx iron) tablet oxycodone 5 mg tablet 5 mg PO Q6H PRN #14 tab 02/06/22 Rx Allergies Allergy/AdvReac Type Severity Reaction Status Date / Time No Known Drug Allergies Allergy Verified 01/29/22 10:53 OB Exam Narrative Exam Narrative: Patient now s/p emergency section. Objective Labs Result Diagrams: 02/04/22 19:22 Labs: Laboratory Results - last 24 hr 02/03/22 02/03/22 02/03/22 18:45 18:50 18:50 WBC 12.6 H RBC 4.58 Hgb 12.2 Hct 36.8 MCV 80.3 MCH 26.6 MCHC 33.1 RDW 15.6 H Plt Count 339 Neut % (Auto) 78.4 H Lymph % (Auto) 12.6 L [place] % (Auto) 8.0 Eos % (Auto) 0.5 L Baso % (Auto) 0.5 Neut # (Auto) 9800 H Lymph # (Auto) 1600 [place] # (Auto) 1000 H Eos # (Auto) 100 Baso # (Auto) 100 Cord ABG pH Cord ABG pCO2 Cord ABG pO2 Cord ABG HCO3 Cord ABG Base Excess Cord ABG O2 Sat SARS-CoV-2 (PCR) Negative Blood Type O Positive Antibody Screen Negative 02/04/22 08:15 WBC RBC Hgb Hct MCV MCH MCHC RDW Plt Count Neut % (Auto) Lymph % (Auto) [place] % (Auto) Eos % (Auto) Baso % (Auto) Neut # (Auto) Lymph # (Auto) [place] # (Auto) Eos # (Auto) Baso # (Auto) Cord ABG pH 6.81 L* Cord ABG pCO2 109 H Cord ABG pO2 18 Cord ABG HCO3 17.5 Cord ABG Base Excess -17 L* Cord ABG O2 Sat 9 SARS-CoV-2 (PCR) Blood Type Antibody Screen Assessment and Plan Assessment and Plan Assessment and Plan narrative: This patient was delivered by emergency section as detailed in the HPI. She will be monitored per the usual post-CS protocol.
[2022-02-04 09:00] VITALS: BP 108/62; PULSE 87; RESP 13; O2SAT 99
[2022-02-04 09:15] VITALS: BP 97/61; PULSE 74; RESP 12; O2SAT 100
--- NOTE | 2022-02-04 09:26 | SUR.OPER ---
Due to emergent nature of surgery, consents were not filled out or verified. Pre-incision time out was foregone. L&D staff members, machine tool electrician, and RT left operating room with baby at approximately 0815.
--- NOTE | 2022-02-04 09:26 | SUR.PHASEI ---
Report called to Blanca ESPINO. Pt going to room 4 in LD dept. Pt updated on transfer and is agreeable.
[2022-02-04 09:27] VITALS: BP 111/70; PULSE 84; RESP 16; O2SAT 100
[2022-02-04] MEDS: diphenhydrAMINE 50 MG/ML VIAL 25 MG IV (13:24)
[2022-02-04] MEDS: KETOROLAC 30 MG/ML VIAL IV ×2 (14:22→21:06)
[2022-02-04] MEDS: ACETAMINOPHEN 325 MG TABLET 650 MG PO (17:48)
[2022-02-04 19:28] LABS: Add Manual Diff / Slide Review NO; Basophils Absolute Auto 0 /uL (0-100); Basophils Percent Auto 0.3 % (0-2); Eosinophils Absolute Auto 100 /uL (0-450); Eosinophils Percent Auto 0.5 % (2-4); Hematocrit 27.4 % (36-46); Hemoglobin 9.2 g/dL (12.0-16.0); Lymphocytes Absolute Auto 1800 /uL (1100-4500); Lymphocytes Percent Auto 12.5 % (25-40); Mean Corpuscular HGB Conc 33.4 % (30-36); Monocytes Absolute Auto 1100 /uL (0-900); Monocytes Percent Auto 7.6 % (3-14); Neutrophils Absolute Auto 11200 /uL (1500-7000); Neutrophils Percent Auto 79.1 % (50-75); Platelet Count 281 X10^3/uL (150-400); Red Blood Cell Count 3.39 X10^6/uL (4.0-5.2); White Blood Cell Count 14.2 X10^3/uL (4.5-11.0)
--- NOTE | 2022-02-05 07:48 | PM.OBPN.1 ---
Subjective - OB Subjective Patient comments: no complaints, pain well controlled, tolerating diet and flatus present baby status: doing well and nursing well [place] feeding status: exclusively breast feeding Date Patient Seen: 02/05/22 Time Patient Seen: 07:30 Interval history: This patient is doing well, POD#1 s/p emergent section. Ambulating, passing flatus, moderate lochia, tolerating PO. For VT this AM. Baby doing well. Exam Vital Signs (past 8 hours): VSS Oxygen Delivery Method Room Air Const General: cooperative, healthy appearing, comfortable and well groomed Resp Effort & Inspection: normal respiratory effort Auscultation: clear to auscultation bilaterally Cardio Rate: regular rate Rhythm: regular rhythm GI Inspection: incision (c/d/i, fundus well below u) Palpation: soft and No tender Extrem General: normal to inspection Objective Labs Result Diagrams: 02/04/22 19:22 Labs: Laboratory Results - last 24 hr 02/04/22 02/04/22 08:15 19:22 WBC 14.2 H RBC 3.39 L Hgb 9.2 L Hct 27.4 L MCV 81.0 MCH 27.0 MCHC 33.4 RDW 16.0 H Plt Count 281 Neut % (Auto) 79.1 H Lymph % (Auto) 12.5 L [place] % (Auto) 7.6 Eos % (Auto) 0.5 L Baso % (Auto) 0.3 Neut # (Auto) 93702 H Lymph # (Auto) 1800 [place] # (Auto) 1100 H Eos # (Auto) 100 Baso # (Auto) 0 Cord ABG pH 6.81 L* Cord ABG pCO2 109 H Cord ABG pO2 18 Cord ABG HCO3 17.5 Cord ABG Base Excess -17 L* Cord ABG O2 Sat 9 Assessment & Plan Plan day: 1 plan OB: routine postop care Comments: This patient is doing well POD#1 s/p emergency CS. She is meeting postoperative goals appropriately. Routine postop care. Time Spent With Patient Time: Total time spent is greater than 50% in coordination of care (as documented) at patient's floor/unit and/or counseling patient: Time with patient: 15-24 minutes
[2022-02-05] MEDS: DOCUSATE 100 MG CAPSULE 200 MG PO (09:33)
[2022-02-05 09:43] VITALS: TEMP 37
[2022-02-05] MEDS: ACETAMINOPHEN 325 MG TABLET 650 MG PO ×2 (09:43→17:47)
[2022-02-05 09:45] VITALS: TEMP 37
[2022-02-05] MEDS: OXYCODONE IR 5 MG TABLET PO ×3 (09:45→19:34)
[2022-02-05 14:59] VITALS: TEMP 37.2
[2022-02-05 17:47] VITALS: TEMP 37.4
[2022-02-05] MEDS: LANOLIN OINT 7 GM 1 APPLIC TOP (21:54)
[2022-02-06] MEDS: OXYCODONE IR 5 MG TABLET PO ×2 (00:52→07:57)
[2022-02-06] MEDS: ACETAMINOPHEN 325 MG TABLET 650 MG PO ×2 (00:52→07:57)
--- NOTE | 2022-02-06 09:44 | P.DS_ITS ---
Discharge Providers Provider Date of admission: 02/03/22 18:13 Discharge Date: 02/06/22 Primary care physician: Neri Shaver MD Consults: 02/04/22 09:35 Consult to [employer] Routine Comment: Discharge provider: Kim Vann MD Summary Hospital Course Date Patient Seen: 02/06/22 Time Patient Seen: 09:45 Diagnoses: placental abruption, footling breech presentation, s/p emergent section. Hospital Course: This patient was admitted for induction of labor at 37 weeks due to a heavily calcified placenta. After a suspected placental abruption and discovery of footling breech presentation, the patient developed a cat 2 then cat 3 FHR tracing and underwent an emergency section. The patient's c section was surgically uncomplicated, and her recovery was uneventful. She was discharged on POD#2 with close follow up. Peripartum Data Delivery Method: Emergency Section complications: none [place] 1: Gender: Female Disposition of : home Status at Discharge Cognitive/behavioral status at discharge: oriented Functional status at discharge: independent ambulation Overall status at discharge: patient is progressing back to baseline Time Spent with Patient Time attestation: Total time spent providing and/or coordinating discharge services: Time spent: Greater than 30 minutes Objective Labs Result Diagrams: 02/04/22 19:22 Exam Vital Signs (past 8 hours): 113/72, HR 89, 97%, RR 16 Oxygen Delivery Method Room Air Narrative Exam Narrative: This morning, the patient is well appearing. Is ambulating, voiding, passing flatus, moderate lochia, no PIH symptoms, tolerating PO. Concern for depression and anxiety, discussed. Const General: cooperative, healthy appearing, comfortable and well groomed Resp Effort & Inspection: normal respiratory effort Auscultation: clear to auscultation bilaterally Cardio Rate: regular rate Rhythm: regular rhythm GI Inspection: incision (c/d/i) Palpation: soft and No tender Other: fundus firm, well below u Skin General: no rashes or lesions noted Extrem General: normal to inspection Discharge Plan Discharge Plan Patient Disposition: Home Discharge orders & Medications Prescriptions: New oxycodone 5 mg tablet 5 mg PO Q6H PRN (Reason: pain) Qty: 14 0RF Rx Instructions: Take as often as every 6 hours for pain. Continued prenat.vits,adrianna,[id number] Tablet 1 tab PO DAILY 0RF ferrous sulfate 325 mg (65 mg iron) tablet 325 mg PO DAILY Qty: 30 3RF Rx Instructions: Take once daily with food. Follow up/Referrals: Kim Vann MD [Physician] - 1 Week Diet/Activity/Treatments Diet: Regular Activity: Nothing in the vagina for 6 weeks. Avoid lifting more than 10 lbs for 6 weeks. If you have increasing bleeding, fevers, chills, nausea, vomiting, anxiety or depression symptoms, or any other concerns, call or come to the emergency department. Skin/Wound/Dressing Care Report to your healthcare provider any signs of infection, such as:: chills, fever, night sweats, increased pain, unusual drainage and unusual redness Dressing: To be removed at 1 week visit. OK to shower with dressing, pat it dry. Visit Report/Discharge Packet Instructions: DI for Discharge Data Primary Care Provider: Neri Shaver
[2022-02-06] MEDS: IBUPROFEN 600 MG TABLET PO (10:15)
== END 2022-02-06 11:40 | disposition home or self-care (01) | DRG 786 ==
PROVIDERS: Obstetrics & Gynecology; Admitting Provider Obstetrics & Gynecology; PCP Internal Medicine; Referring Provider Obstetrics & Gynecology; Visit Provider Obstetrics & Gynecology
PROC: (CPT 59514; principal; 2022-02-04 09:45)
DX: O76 Abnormality in fetal heart rate and rhythm complicating labor and delivery (principal); O45.93 Premature separation of placenta, unspecified, third trimester; O32.8XX0 Maternal care for other malpresentation of fetus, not applicable or unspecified; Z37.0 Single live birth; Z3A.37 37 weeks gestation of pregnancy; O99.891 Other specified diseases and conditions complicating pregnancy; N85.6 Intrauterine synechiae; O43.893 Other placental disorders, third trimester; O99.824 Streptococcus B carrier state complicating childbirth; Z20.822 Contact with and (suspected) exposure to COVID-19
CPT/HCPCS: 01967; 01968; 36415; 59050; 59200; 59514; 59515; 82803; 85025; 86850; 86900; 86901; 87635; C9803; G0379; J0330; J0690; J1200; J1885; J2274; J2405; J2590; J3010

== ENCOUNTER → 2024-08-12 14:18 | Outpatient (CLI) | payer OTHER, SELFPAY ==
--- NOTE | 2024-08-12 14:45 | DI.US.S_ITS ---
PROCEDURE: US OB <= 14 WEEKS FETUS INDICATIONS: dating and viability OUTSIDE/PRIOR DATING DATA: Last menstrual period (LMP): 06/18/2024. LMP-based estimated date of delivery (JAY JAY): 03/25/2024. First dating scan (date and location): 08/12/2024. Estimated date of delivery (JAY JAY) from first dating scan: 03/19/2025. TECHNIQUE: Real-time scanning was performed of the fetus and maternal pelvic organs, with image documentation. Endovaginal scanning was also performed to better visualize the fetus and maternal ovaries. COMPARISON: US, OB >= 14 WEEKS FETUS, 01/29/2022, 11:05. [facility], US, OB <= 14 WEEKS FETUS, 01/03/2022, 12:07. FINDINGS: Embryo: [place]-rump length is present measuring 2.1 cm corresponding to 8 weeks 5 days. Heart rate: 169 beats per minute Maternal organs: Ovaries demonstrate left corpus luteal cyst.. IMPRESSION: Single live intrauterine with gestational age of 8 weeks 5 days. Recommend followup imaging at 20-22 weeks for dates and anatomy. We strive to produce accurate, complete, and clear reports of imaging services. To assist us in improving patient care, this report was composed using standard report templates and voice recognition software. Therefore, it may contain abnormal punctuation, insertions and/or omissions. Occasional wrong-word or sound-alike substitutions may occur. Though we review the report and make efforts to correct it, we do recommend that the report be read carefully in proper context to recognize any text inaccuracies. Dictated by: Uzma Maxwell M.D. on 08/12/2024 at 20:56 Approved by: Uzma Maxwell M.D. on 08/12/2024 at 21:02
== END ==
PROVIDERS: PCP Internal Medicine; Referring Provider Obstetrics & Gynecology; Visit Provider Obstetrics & Gynecology
DX: Z34.81 Encounter for supervision of other normal pregnancy, first trimester (principal); Z3A.08 8 weeks gestation of pregnancy
CPT/HCPCS: 76801; 76817

== ENCOUNTER → 2024-08-27 09:51 | Outpatient (CLI) | payer OTHER, SELFPAY ==
[2024-08-27 11:32] LABS: Natera Collection Specimen Collected
[2024-08-27 11:35] LABS: Add Manual Diff / Slide Review NO; Basophils Absolute Auto 0 /uL (0-100); Basophils Percent Auto 0.2 % (0-2); Eosinophils Absolute Auto 100 /uL (0-450); Eosinophils Percent Auto 1.1 % (2-4); Hematocrit 34.8 % (36-46); Hemoglobin 11.7 g/dL (12.0-16.0); Lymphocytes Absolute Auto 1600 /uL (1100-4500); Lymphocytes Percent Auto 17.5 % (25-40); Mean Corpuscular HGB Conc 33.7 % (30-36); Mean Corpuscular Volume 86.1 fL (80-100); Monocytes Absolute Auto 600 /uL (0-900); Monocytes Percent Auto 6.6 % (3-14); Neutrophils Absolute Auto 7000 /uL (1500-7000); Neutrophils Percent Auto 74.6 % (50-75); Platelet Count 342 X10^3/uL (150-400); Red Blood Cell Count 4.04 X10^6/uL (4.0-5.2); Red Cell Distribution Width 14.7 % (11.6-14.8); White Blood Cell Count 9.4 X10^3/uL (4.5-11.0)
[2024-08-27 12:30] LABS: Hepatitis B Surface Antigen NEGATIVE s/c (NEGATIVE); Rubella Antibody IgG 3.6 IU/mL (>15)
[2024-08-27 12:47] LABS: HIV 1 & 2 Ab/Ag 4th Gen Combo NEGATIVE (NEGATIVE); Hep C Virus Ab w/Reflex Quant NEGATIVE s/c (NEGATIVE)
[2024-08-28 04:36] LABS: RPR Screen Non Reactive (Non Reactive)
[2024-08-28 09:13] LABS: Varicella IgG Antibody Reactive (Non Reactive)
== END ==
LOC: LAB 09:52
PROVIDERS: PCP Internal Medicine; Referring Provider Obstetrics & Gynecology; Visit Provider Obstetrics & Gynecology
DX: Z34.81 Encounter for supervision of other normal pregnancy, first trimester (principal); Z3A.10 10 weeks gestation of pregnancy
CPT/HCPCS: 36415; 80055; 86787; 86803; 86850; 86900; 86901; 87077; 87086; 87186; 87389

== ENCOUNTER → 2024-09-09 15:47 | Outpatient (CLI) | payer OTHER, SELFPAY ==
[2024-09-09 21:53] LABS: Urine N gonorrhoeae NOT DETECTED
[2024-09-09 22:24] LABS: Urine Chlamydia NOT DETECTED
== END ==
PROVIDERS: PCP Internal Medicine; Visit Provider Obstetrics & Gynecology
DX: Z11.3 Encounter for screening for infections with a predominantly sexual mode of transmission (principal)
CPT/HCPCS: 87491; 87591

== ENCOUNTER → 2024-10-07 14:18 | Outpatient (CLI) | payer OTHER, SELFPAY ==
[2024-10-12 19:07] LABS: AFP Value 44.4 ng/mL (.); Gest Age on Col Date 16.3 weeks (.); Insulin Dep Diabetes No (.); OSBR Risk 1IN 6110 (.); Results Report (.); Test Results *Screen Negative* (.)
== END ==
PROVIDERS: PCP Internal Medicine; Referring Provider Obstetrics & Gynecology; Visit Provider Obstetrics & Gynecology
DX: Z36.0 Encounter for antenatal screening for chromosomal anomalies (principal)
CPT/HCPCS: 36415; 82105

== ENCOUNTER → 2024-11-05 11:56 | Outpatient (CLI) | payer OTHER, SELFPAY ==
--- NOTE | 2024-11-05 11:57 | DI.US.S_ITS ---
PROCEDURE: US OB >= 14 WEEKS FETUS INDICATIONS: 20 week anatomy scan OUTSIDE/PRIOR DATING DATA: Last menstrual period (LMP): 06/18/2024. LMP-based estimated date of delivery (JAY JAY): 03/25/2024. First dating scan (date and location): 08/12/2024. Estimated date of delivery (JAY JAY) from first dating scan: 03/19/2025. TECHNIQUE: Real-time scanning was performed of the fetus, with image documentation and biometric measurements. Endovaginal scanning: Not performed COMPARISON: [facility], , US OB >= 14 WEEKS FETUS, 01/29/2022, 11:05. FINDINGS: General: A single living intrauterine gestation is present. Presentation: Breech. Placenta: Placental position is left posterior , without previa. Amniotic fluid index: 17.4 cm, normal range is 5-24 cm. Single deepest vertical pocket is 4.7 cm. heart rate: 155 beats per minute. Maternal cervical canal: 3.5 cm long. Normal lower limit is 2.5 cm. biometrics: Biparietal diameter: 5 cm, 21 weeks 1 day Head circumference: 18.5 cm, 20 weeks 6 days Abdominal circumference: 15.9 cm, 21 weeks 0 days Femur length: 3.5 cm, 21 weeks 0 days Clinically estimated gestational age: 20 weeks 0 days Composite gestational age from present scan: 21 weeks 0 days Estimated weight and percentile: 391 g, 90 second percentile Anatomic survey: Neuro: Ventricles are non-dilated at less than 10 mm. Cisterna magna is normal at 3-11 mm. Cerebellum is normal in size and morphology. Nuchal skin fold: Normal at less than 6 mm between 14-21 weeks gestational age. Face: Nose and lips, facial profile are normal. Spine: No evidence for spina bifida. Heart: 4-chambered heart is present, with normal ventricular outflow tracts. Diaphragm: Diaphragm is intact. Stomach: Left-sided stomach is present. Kidneys: No hydronephrosis. Normal is less than 5 mm in 2nd trimester, less than 7 mm in 3rd trimester. Cord: 3-vessel cord has orthotopic insertion. Bladder: Normal in size. Extremities: All 4 extremities identified. Other: Amniotic band noted in the right upper quadrant. IMPRESSION: Single living intrauterine at 20 weeks 0 days, JAY JAY of 03/25/2025. Amniotic band noted in the right upper quadrant of the amniotic Sac. Estimated weight of 391 g, 92 percentile. Otherwise, normal anatomy survey. We strive to produce accurate, complete, and clear reports of imaging services. To assist us in improving patient care, this report was composed using standard report templates and voice recognition software. Therefore, it may contain abnormal punctuation, insertions and/or omissions. Occasional wrong-word or sound-alike substitutions may occur. Though we review the report and make efforts to correct it, we do recommend that the report be read carefully in proper context to recognize any text inaccuracies. Dictated by: Curtis Mosquera M.D. on 11/05/2024 at 16:56 Approved by: Curtis Mosquera M.D. on 11/05/2024 at 16:58
== END ==
PROVIDERS: PCP Internal Medicine; Referring Provider Obstetrics & Gynecology; Visit Provider Obstetrics & Gynecology
DX: Z34.82 Encounter for supervision of other normal pregnancy, second trimester (principal); Z3A.20 20 weeks gestation of pregnancy
CPT/HCPCS: 76811

== ENCOUNTER → 2024-12-23 08:53 | Outpatient (CLI) | payer OTHER, SELFPAY ==
[2024-12-23 10:30] LABS: Hematocrit 35.6 % (36-46); Hemoglobin 12.4 g/dL (12.0-16.0)
[2024-12-23 10:55] LABS: GTT (PREG) 1 Hour PP 50gm Dose 119 mg/dL (76-139)
== END ==
PROVIDERS: PCP Internal Medicine; Referring Provider Obstetrics & Gynecology; Visit Provider Obstetrics & Gynecology
DX: Z34.92 Encounter for supervision of normal pregnancy, unspecified, second trimester (principal); Z3A.26 26 weeks gestation of pregnancy
CPT/HCPCS: 36415; 82950; 85014; 85018

== ENCOUNTER 2025-02-11 10:03 | Observation (INO) | payer OTHER, SELFPAY ==
--- NOTE | 2025-02-11 10:53 | DI.US.S_ITS ---
PROCEDURE: US OB LIMITED INDICATIONS: decreased FM, Hx placental abruption in 1st OUTSIDE/PRIOR DATING DATA: Last menstrual period (LMP): 06/18/2024. LMP-based estimated date of delivery (JAY JAY): 03/25/2024. First dating scan (date and location): 08/12/2024. Estimated date of delivery (JAY JAY) from first dating scan: 03/19/2025. . TECHNIQUE: Real-time scanning was performed of the fetus, with image documentation and biometric measurements. COMPARISON: [facility], OB >= 14 WEEKS FETUS, 11/05/2024, 12:11. FINDINGS: General: A single living intrauterine gestation is present. Presentation: Vertex. Placenta: Placental position is posterior , without previa. It is grade 1/2 placenta with minimal calcification. Amniotic fluid index: 11.4 cm, normal range is 5-24 cm. Single deepest vertical pocket is 4.1 cm. heart rate: 165 beats per minute. Maternal cervical canal: Not evaluated biometrics: Biparietal diameter: 8.4 cm 33 weeks 6 days Head circumference: 30.7 cm 34 weeks 1 day Abdominal circumference: 32.2 cm 36 weeks 1 day Femur length: 6.8 cm 35 weeks 1 day Clinically estimated gestational age: 34 weeks 3 days Composite gestational age from present scan: 34 weeks 6 days Estimated weight and percentile: 2660 g 74th percentile BPP: Tone: 2 Movement: 2 Respiration: 0 Largest Pocket: 0 Other: Doppler ratios 1.9, 3.2, 3.2 IMPRESSION: Single live intrauterine with gestational age today 34 weeks 6 days BPP 6/8 We strive to produce accurate, complete, and clear reports of imaging services. To assist us in improving patient care, this report was composed using standard report templates and voice recognition software. Therefore, it may contain abnormal punctuation, insertions and/or omissions. Occasional wrong-word or sound-alike substitutions may occur. Though we review the report and make efforts to correct it, we do recommend that the report be read carefully in proper context to recognize any text inaccuracies. Dictated by: Uzma Maxwell M.D. on 02/11/2025 at 14:00 Transcribed by: ABRIL on 02/11/2025 at 14:14 Approved by: Uzma Maxwell M.D. on 02/11/2025 at 14:35
== END 2025-02-11 13:30 | disposition home or self-care (01) ==
PROVIDERS: Admitting Provider Obstetrics & Gynecology; PCP Internal Medicine; Referring Provider Obstetrics & Gynecology; Visit Provider Obstetrics & Gynecology
DX: O36.8130 Decreased fetal movements, third trimester, not applicable or unspecified (principal); Z3A.34 34 weeks gestation of pregnancy
CPT/HCPCS: 76815; 76819; 76820; G0378; G0379

== ENCOUNTER → 2025-02-23 10:34 | Outpatient (CLI) | payer OTHER, SELFPAY ==
[2025-02-24 14:33] LABS: Strep Grp B PCR NEG for Grp B Strep
== END ==
PROVIDERS: PCP Internal Medicine; Visit Provider Obstetrics & Gynecology
DX: Z34.83 Encounter for supervision of other normal pregnancy, third trimester (principal); Z3A.36 36 weeks gestation of pregnancy
CPT/HCPCS: 87653

== ENCOUNTER 2025-03-15 05:33 | Inpatient (IN) | payer OTHER, SELFPAY ==
--- NOTE | 2025-03-14 20:39 | PM.OBHP.IH.1 ---
OB HPI Date/Time Date of admission: 03/15/25 Date Patient Seen: 03/15/25 Time Patient Seen: 07:00 History of Present Condition Chief complaint: IUP, 39+0 wks EGA, Prior CS x1 Date of Last Menstrual Period: 06/08/24 JAY JAY Calculator Estimated Delivery Date Method Current WG Current Estimate 03/22/25 LMP (Certain) 39w 0d Other Estimates 03/19/25 Ultrasound #1 39w 3d Estimated Gestational Age (weeks): 39+0 : 2 Para: 1 Narrative: Briseyda is a 29 yo admitted now 39+0 wks EGA for repeat section. Her course has been uneventful, dating is firm, and milestones appropriate throughout. GBS is negative. care: good care Dating criteria OB: LMP confirmed by 1st trimester US Ultrasounds: normal 1st trimester US and normal mid trimester US Obstetrical complications: none Medical complications OB: none Indications Operative indications ( section): previous uterine surgery Preadmission Labs Last OB Lab Results: Blood Type O Positive Today, 06:00 Antibody Screen Negative Today, 06:00 Hct, (36-46) 36.8 % Today, 06:00 Hgb, (12.0-16.0) 12.8 g/dL Today, 06:00 Hep Bs Antigen, (NEGATIVE) Negative s/c 08/27/24, 10:32 Hepatitis C Antibody, (NEGATIVE) Negative s/c 08/27/24, 10:32 Rubella Antibody, (>15) 3.6 IU/mL L 08/27/24, 10:32 VZV IgG Antibody, (Non Reactive) Reactive 08/27/24, 10:32 Glucose 1 Hr 50 gm, (76-139) 119 mg/dL 12/23/24, 08:56 Group B Strep (PCR) Neg for grp b strep 02/23/25, 10:45 -: Chlamydia screen: negative, Gonorrhea screen: negative and Urine: negative -: PAP smear: Normal Genetic Screens: Cell-free DNA: Normal and Alpha-fetoprotein: Normal External Labs -: Urine: negative Prior (ies) Past Pregnancies Del. Date GA/Weeks Labor Lgth Wt Sex Route Outcome Anesthesia Place Delv Breastfeed Preg Comp Name 02/04/22 37 10 6 lb 6 oz Female live - full term epidural IH pumped 6 months other Say Delivery Date: 02/04/22 Last Updated by: Rosie Fry RN calcified placenta (possible COVID infection during ), suspected amniotic band (later ruled out), placental abruption in labor Hx # Term Pregnancies: 1 Hx # Pregnancies: 0 Number of Living Children: 1 Evaluation Evaluation Baseline heart rate: 145 Variability: Moderate (11-25) monitor accelerations: Present Monitor Decelerations: Absent Status: Category l PFSH Medical History Abnormal skin morphology determined by biopsy delivery delivered Abnormal placenta, antepartum Acne (~2019) Chicken pox (~1995) Constipation Malignant melanoma (~07/2016) Surgical History History of section (02/04/22) Anesthesia Skin cancer (~2015) S/P lumpectomy, left breast (~10/2013) [place] teeth extracted (~2017) H/O breast augmentation (~12/2014) Family History Mother Hypertension Myocardial infarction Heart disease Hyperlipidemia Father Hypertension Grandmother Breast cancer Diabetes mellitus Grandfather Colon cancer Heart disease Hyperlipidemia Hypertension Grandmother Parkinson's disease Grandfather Colon cancer Hypertension Brother ADHD Dyslexia Sister Herpes Social History marital status: number of children: 1 household members: spouse and children lives independently: Yes caregiver/support person: Yes housing: house pets and animals: Yes (2 dogs) education level: master's degree (education) 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) current occupational exposures/hazards: Yes (occasionally violent kids, current chickenpox outbreak at school) special kei needs: No travel history: over 6 months ago seatbelt use: always helmet use: Yes water heater temp set < 120 deg: Yes working smoke detector in home: Yes fire extinguisher in home: Yes carbon monox detector in home: Yes firearms in home: No do you feel safe at home: Yes Smoking Status: Never smoker second hand exposure: No alcohol intake: former (usually less than one glass wine per week when not ) substance use type: does not use during the past year weight has: decreased > 10 lbs (intentional) well-balanced diet: about half the time daily servings fruits/ve-4 (mostly fruit) caffeine: Yes (aware of and) Type(s) of exercise: walking, weight lifting and normal ROM and activity frequency: 3-4 times per week duration: 30-45 minutes/day additional social history: 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 Meds Home Medications and Allergies Home Medications ?Medication ?Instructions ?Recorded ?Confirmed ?Type prenat.vits,adrianna,[id number] 1 tab PO DAILY 09/14/21 03/04/25 History breast pump #1 ea 01/28/25 03/04/25 Rx Allergies Allergy/AdvReac Type Severity Reaction Status Date / Time No Known Drug Allergies Allergy Verified 03/04/25 11:24 Review of Systems Review of Systems Narrative: Problem-specific ROS positives included in HPI OB Exam Vital signs Blood Pressure: 111/76 Pulse Rate: 67 HENMT Head: normal to inspection, normocephalic and atraumatic Eyes General: appearance normal, both eyes and all related structures Resp Effort & Inspection: normal respiratory effort and able to speak in complete sentences Auscultation: clear to auscultation bilaterally Cardio Rate: regular rate Rhythm: regular rhythm Heart Sounds: S1 normal, S2 normal and no murmurs Extremities Lower extremity: Yes normal to inspection GI Inspection: normal to inspection Palpation: Yes soft and Yes no hepatosplenomegaly Uterus Location (Fundal Height): 36 Estimated Weight (lbs): 7 Objective Labs 03/15/25 06:00 Assessment and Plan Assessment and Plan Assessment and Plan narrative: ASSESSMENT 1. Intrauterine , 39+ 0 weeks gestational age 2. Prior section x1 3. GBS negative status PLAN 1. Admit for repeat section 2. See admission orders Time-Based Coding :: [TOTAL MINUTES] spent with patient and on the chart (including review of chart, obtaining history, exam, reviewing outside data, placing orders, documenting exam and treatment plan, and counseling patient) on [DATE].
[2025-03-15 06:15] LABS: Add Manual Diff / Slide Review NO; Basophils Absolute Auto 0 /uL (0-100); Basophils Percent Auto 0.2 % (0-2); Eosinophils Absolute Auto 100 /uL (0-450); Eosinophils Percent Auto 1.1 % (2-4); Hematocrit 36.8 % (36-46); Hemoglobin 12.8 g/dL (12.0-16.0); Lymphocytes Absolute Auto 1500 /uL (1100-4500); Mean Corpuscular HGB Conc 34.7 % (30-36); Mean Corpuscular Hemoglobin 30.4 PG (26-34); Mean Corpuscular Volume 87.5 fL (80-100); Monocytes Absolute Auto 800 /uL (0-900); Monocytes Percent Auto 8.5 % (3-14); Neutrophils Absolute Auto 6800 /uL (1500-7000); Neutrophils Percent Auto 74.2 % (50-75); Platelet Count 249 X10^3/uL (150-400); Red Blood Cell Count 4.21 X10^6/uL (4.0-5.2); Red Cell Distribution Width 12.6 % (11.6-14.8); White Blood Cell Count 9.1 X10^3/uL (4.5-11.0)
[2025-03-15] MEDS: CITRIC ACID/SODIUM CITRATE 15 ML SOLUTION 30 ML PO (07:13)
[2025-03-15 07:30] VITALS: BP 111/76; PULSE 67
--- NOTE | 2025-03-15 07:33 | PM.PREOP ---
Pre-operative Note COVID-19 COVID-19 status: Not tested Interval Note History & Physical reviewed/Exam performed by Physician: Yes Changes to H&P: No
--- NOTE | 2025-03-15 08:01 | SUR.OPER ---
Supine on Padded OR bed, head on pillow, safety belt at thigh, arms secured on padded arm boards at <90 degrees abduction. Bump under right buttock. Legs uncrossed with pillow under knees, gel pad to heels, tape over blanket to lower legs.
[2025-03-15] MEDS: LACTATED RINGERS 1,000 ML 999 ML IV (08:10)
[2025-03-15] MEDS: CEFAZOLIN 2 GM/100 ML PREMIX 100 ML IV (08:16)
--- NOTE | 2025-03-15 08:47 | SUR.OPER ---
Pre-procedure [id number]. Viable baby born at 0837.
[2025-03-15] MEDS: ACETAMINOPHEN IV 1,000 MG/100 ML VIAL 400 MG IV (09:00)
[2025-03-15 09:30] VITALS: BP 99/39; PULSE 71; RESP 17; TEMP 36.5; O2SAT 98
[2025-03-15 09:35] VITALS: BP 117/60; PULSE 70; RESP 21; O2SAT 97
--- NOTE | 2025-03-15 09:39 | PM.OBCS.1 ---
Operative Date/Time/Diagnoses Date of procedure: 03/15/25 Time of procedure: 08:25 Pre-op diagnosis: Intrauterine , 39+ 0 weeks gestational age Prior section x1 Post-op diagnosis: same Procedure & Clinicians Procedure: Repeat section, low transverse cervical Same procedure as scheduled: Yes Indications: Briseyda is a 29 yo admitted now 39+0 wks EGA for repeat section. Her course has been uneventful, dating is firm, and milestones appropriate throughout. GBS is negative. Surgeon: Jv Valerio Area Intelligence Technician: Paige Cerrato Reason for Area Intelligence Technician: Area Intelligence Technician required for the safe, effective, and timely completion of this surgery. Anesthesia Type: Spinal Operative Notes Findings: Viable female infant BW 3476 gms (7 lbs. 10.6 oz.), Apgars 9/9, delivered from the vertex presentation. Normal gravid anatomy. Closure Type: primary Specimen(s): cord blood Intraoperative meds administered: Ketorolac and Pitocin Applied: Catheter Estimated Blood Loss (mL): 700 Blood products transfused: none Procedure in detail: With her informed written consent, the patient was taken to the operating room and placed in the supine position for a repeat section procedure, for the indication(s) above. The abdomen was prepped and draped in the usual manner for section and a pre-surgical timeout was taken per [facility] OR protocol. Once effective anesthesia was confirmed, a 15 cm transverse Pfannenstiel incision was made in the skin and taken down through the subcutaneous tissues to the deep fascia. The deep fascia was incised transversely, the rectus abdominal eyes bluntly and sharply, and the peritoneal cavity entered without difficulty. The lower uterine segment was visualized and the position/presentation palpated. A transverse incision at or above the vesicouterine reflection was made with Metzenbaum scissors and transverse hysterotomy performed near the midline. Amniotomy revealed clear fluid. The incision was extended bilaterally with digital traction and the was delivered with vacuum assist from the vertex presentation. The was vigorous and cord clamping delayed for 60 seconds. The placenta was delivered intact using gentle cord traction and fundal massage.The uterine cavity was then cleared of any clot/debris first with a sloppy wet lap tape followed by a dry lap tape. Ring forceps were then applied to the angles and the midline of the incised BINH. A primary closure of the uterus was then accomplished with #1 CCGS in a running interlocking stitch followed by a 2nd layer of #1 CCGS in a running interlocking imbricating stitch. An ascending uterine artery suture was required on the left side to achieve complete hemostasis. Once pelvic hemostasis was assured, the anterior peritoneum was closed with a running 2-0 Vicryl suture and the fascia closed with #1 Vicryl in a running stitch initiated at both angles and tying separately near the midline. The subcutaneous tissues were reapproximated with 2-0 plain catgut suture using inverted interrupted stitches. The skin edges were then brought together with 4-0 Monocryl in a subcuticular closure and the incision was reinforced with 1 Steri-Strips. An appropriate compression dressing was applied and the patient transferred to PACU for recovery and subsequent transfer to the Center for recuperation. Complications: none Baby 1: Delivery Date: 03/15/25 Delivery Time: 08:37 Infant Gender: Female Presentation: vertex Position: Left Occiput Anterior Placental Delivery Description: Spontaneous Cord Vessel Description: 3 Vessels score (1 min): 9 score (5 min): 9 weight: 7 lb 10.612 oz Post-operative Condition: stable Disposition: PACU Aftercare: routine postop
[2025-03-15 09:40] VITALS: BP 115/51; PULSE 68; RESP 12; O2SAT 97
[2025-03-15 09:46] VITALS: BP 115/44; PULSE 75; RESP 12; TEMP 36.6; O2SAT 98
[2025-03-15] MEDS: KETOROLAC 30 MG/ML VIAL IV ×2 (15:00→21:12)
[2025-03-15] MEDS: OXYCODONE IR 5 MG TABLET PO (16:47)
[2025-03-15] MEDS: HYDROMORPHONE 1 MG INJ IV (18:17)
[2025-03-15] MEDS: ACETAMINOPHEN 325 MG TABLET 650 MG PO (18:17)
[2025-03-15] MEDS: DOCUSATE 100 MG CAPSULE PO (21:12)
[2025-03-16] MEDS: ACETAMINOPHEN 325 MG TABLET 650 MG PO ×3 (00:10→12:05)
[2025-03-16] MEDS: OXYCODONE IR 5 MG TABLET PO ×2 (01:39→08:14)
[2025-03-16] MEDS: KETOROLAC 30 MG/ML VIAL IV (03:21)
[2025-03-16] MEDS: DOCUSATE 100 MG CAPSULE PO (07:30)
[2025-03-16 09:05] LABS: Add Manual Diff / Slide Review NO; Basophils Absolute Auto 0 /uL (0-100); Basophils Percent Auto 0.4 % (0-2); Eosinophils Absolute Auto 100 /uL (0-450); Eosinophils Percent Auto 0.5 % (2-4); Hemoglobin 11.8 g/dL (12.0-16.0); Lymphocytes Absolute Auto 2000 /uL (1100-4500); Lymphocytes Percent Auto 16.2 % (25-40); Mean Corpuscular HGB Conc 34.7 % (30-36); Mean Corpuscular Hemoglobin 30.3 PG (26-34); Mean Corpuscular Volume 87.3 fL (80-100); Monocytes Absolute Auto 900 /uL (0-900); Monocytes Percent Auto 7.4 % (3-14); Neutrophils Absolute Auto 9200 /uL (1500-7000); Neutrophils Percent Auto 75.5 % (50-75); Platelet Count 238 X10^3/uL (150-400); Red Blood Cell Count 3.89 X10^6/uL (4.0-5.2); Red Cell Distribution Width 12.5 % (11.6-14.8); White Blood Cell Count 12.2 X10^3/uL (4.5-11.0)
[2025-03-16] MEDS: PRENATAL VIT,CALC/IRON/FOLIC 1 TABLET 1 TAB PO (10:23)
[2025-03-16] MEDS: MEASLES,MUMPS,RUBELLA VACC/PF 0.5 ML VIAL SUBCUT (10:23)
[2025-03-16] MEDS: IBUPROFEN 600 MG TABLET PO (10:39)
[2025-03-16 12:52] VITALS: BP 104/64; PULSE 77; RESP 13; TEMP 36.8
--- NOTE | 2025-03-16 13:01 | PM.OBDS.1 ---
Discharge Providers Provider Date of admission: 03/15/25 05:33 Discharge Date: 03/16/25 Primary care physician: Neri Shaver MD Consults: 03/15/25 11:28 Consult to Research And Development Scientist Routine Comment: Discharge provider: Jv Valerio MD Summary Hospital Course Date Patient Seen: 03/16/25 Time Patient Seen: 09:00 Diagnoses: Intrauterine , 39+ 0 weeks gestational age Prior section x1 Hospital Course: Briseyda was admitted on the morning of 03/15/2025 and underwent an uneventful repeat section by low transverse cervical incision on that date. Full details of the procedure well summarized on my operative note of that date. Following delivery patient has done exceptionally well with prompt return of bowel and bladder function, she is ambulating independently, tolerating a regular diet, and her pain is well controlled with oral pain medications. She will be discharged at this time to home in an afebrile normotensive condition after counseling regarding precautionary symptoms, limitations of activity, medications, and plans for follow-up which will be in 1 week or as needed. Medications at discharge will include resumption of vitamins and oxycodone 5 mg every 4-6 hours as needed for pain, dispense 20 with no refills. Peripartum Data Infant Delivery Method: Section Laceration Description: None Episiotomy description: None Procedures: Spinal block anesthetic Repeat section (low transverse cervical) complications: none 1: Gender: Female Disposition of : home Status at Discharge Cognitive/behavioral status at discharge: oriented Functional status at discharge: independent ambulation Overall status at discharge: patient is progressing back to baseline Time Spent with Patient Time attestation: Total time spent providing and/or coordinating discharge services: Time spent: Less than 30 minutes Objective Labs 03/16/25 08:50 Labs: Laboratory Results - last 24 hr 03/16/25 08:50 WBC 12.2 H RBC 3.89 L Hgb 11.8 L Hct 34.0 L MCV 87.3 MCH 30.3 MCHC 34.7 RDW 12.5 Plt Count 238 Neut % (Auto) 75.5 H Lymph % (Auto) 16.2 L Bradley % (Auto) 7.4 Eos % (Auto) 0.5 L Baso % (Auto) 0.4 Neut # (Auto) 9200 H Lymph # (Auto) 2000 Bradley # (Auto) 900 Eos # (Auto) 100 Baso # (Auto) 0 Exam Vital Signs (past 8 hours): - 03/16/25 12:52 Temperature 98.3 F Pulse Rate 77 Respiratory Rate 13 Blood Pressure 104/64 Oxygen Delivery Method Room Air Const General: cooperative and comfortable Nutritional Appearance: average body habitus Orientation: alert and oriented x3 HENMT Head: normal to inspection, atraumatic and abrasion Ears: hearing grossly normal bilaterally Face and sinus: face symmetric Eyes General: appearance normal, both eyes and all related structures Conjunctivae: conjunctivae normal Sclera: sclerae normal EOM: EOM intact bilaterally Neck Neck: normal visual inspection Resp Effort & Inspection: normal respiratory effort and able to speak in complete sentences Auscultation: clear to auscultation bilaterally Cardio Rate: regular rate Rhythm: regular rhythm Heart Sounds: S1 normal, S2 normal and no murmurs GI Inspection: normal to inspection and incision (Compression dressing removed, Aquacel applied) Palpation: soft, no hepatosplenomegaly and tender (Mild, diffuse postsurgical tenderness) Auscultation: normal bowel sounds External Female Exam: other (No significant bleeding noted) Extrem General: no calf tenderness Psych Appearance: grossly normal Mental Status: mental status grossly normal Speech and Movement: speech and movement normal Mood: congruent mood Affect: normal affect Attitude: cooperative Thought Process: normal Thought Content: normal Judgment: judgment good Discharge Plan Discharge Plan Patient Disposition: Home Provider Discharge Comment: Please review the written instructions you received when you were discharged from the hospital. Your follow-up appointment is scheduled for 1 week after your surgery and I look forward to seeing you then. If however in the meanwhile you have any issues, concerns, or questions, please contact me either through the office phone at [phone], or via the patient portal. Discharge orders & Medications Prescriptions: New oxycodone 5 mg Tablet 5 mg PO Q4-6H PRN (Reason: Pain, Moderate (4-6)) Qty: 20 0RF Continued (DME) breast pump Device See Rx Instructions .ROUTE .MEDSUPPLY Qty: 1 0RF Rx Instructions: double electric breast pump prenat.vits,adrianna,ida-gcaf-hpgos Tablet 1 tab PO DAILY Follow up/Referrals: Jv Valerio MD [Physician, [employer]] - 03/22/25 10:30 am Referral Note: 6 week post appt with Dr. Valerio on 05/03/2025 @ 1130am Discharge Health Status Multidrug resistant organism: No MDRO Diet/Activity/Treatments Diet: Diet as Tolerated Activity: As tolerated Other treatments: [id number]-xfqbenx Tylenol and/or ibuprofen may be used for additional pain relief. Yrzi-wif-wugolsh stool softeners and/or MiraLax may be used as needed for constipation. Skin/Wound/Dressing Care Dressing: Dressing will be removed when you return for your one-week postop visit. Visit Report/Discharge Packet Instructions: DI for , DI for and Nipple Soreness, DI for Prescription Opioid Use Stand Alone Forms: Patient Portal/API, Stroke Signs & Symptoms Discharge Data Primary Care Provider: Neri Shaver
== END 2025-03-16 12:50 | disposition home or self-care (01) | DRG 788 ==
PROVIDERS: Admitting Provider Obstetrics & Gynecology; PCP Internal Medicine; Referring Provider Obstetrics & Gynecology; Visit Provider Obstetrics & Gynecology
PROC: 10D00Z1 Extraction of Products of Conception, Low, Open Approach (ICD-10-PCS; CPT 59514; principal; 2025-03-15 07:45)
DX: O34.211 Maternal care for low transverse scar from previous cesarean delivery (principal); Z3A.39 39 weeks gestation of pregnancy; Z37.0 Single live birth; Z67.40 Type O blood, Rh positive
CPT/HCPCS: 36415; 59050; 85025; 86850; 86900; 86901; J0131; J0690; J1100; J1171; J1885; J2274; J2405